=== PATIENT | female | born 1955 | race American Indian/Alaskan Native ===

== ENCOUNTER 2019-02-10 09:53 | Outpatient (CLI) | payer OTHER ==
--- NOTE | 2019-02-10 12:12 | Mammography Report ---
DEXA BONE DENSITY SCAN INDICATION: MENOPAUSAL AND FEMALE CLIMACTERIC STATES COMPARISON: None available. LUMBAR SPINE (L1-L4): Bone mineral density (BMD) is 0.949 g/cm2. T-score is -0.9 (standard deviations of Young Adult mean). Z-score is 0.0 (standard deviations of Age Matched mean). LEFT FEMORAL NECK: Bone mineral density (BMD) is 0.672 g/cm2. T-score is -1.6 (standard deviations of Young Adult mean). Z-score is -0.7 (standard deviations of Age Matched mean). IMPRESSION: 1. WHO Classification: Osteopenia. Fracture Risk: Increased. Signer Name: Blaze John MD Signed: 02/10/2019 12:07 PM Workstation Name: [id number]
== END 2019-02-10 09:54 | disposition home or self-care (01) ==
LOC: MAMMO 09:53
PROVIDERS: ATTEND Advanced Practice Midwife
DX: M85.88 Other specified disorders of bone density and structure, other site (principal)
CPT/HCPCS: 77080